=== PATIENT | male | born 1980 ===

== ENCOUNTER 2017-03-04 10:50 | Emergency (ER) | payer BC, OTHER ==
[2017-03-04 10:57] VITALS: BMI 21.4
[2017-03-04 10:58] VITALS: BP 131/75; PULSE 85; RESP 17; TEMP 100.3; O2SAT 98
--- NOTE | 2017-03-04 11:30 | ED PDOC ---
HPI: CCC, URI, Sore Throat Time Seen by Provider: 03/04/17 10:50 Chief Complaint (Nursing): Flu-like Symptoms Chief Complaint (Provider): cough History Per: Patient History/Exam Limitations: no limitations Onset/Duration Of Symptoms: Days (x3 weeks) Current Symptoms Are (Timing): Still Present Additional Complaint(s): Devin Mao is a 37 year old male who presents to the emergency department with a complaint of cough associated with fever ongoing for 3 weeks. Denied knowledge of seasonal allergies. Patient was given Augmentin and Phenergan by PCP but medication did not improvement symptoms. PMD: Nargis Nguyen MD Past Medical History Reviewed: Historical Data, Nursing Documentation, Vital Signs Vital Signs: Last Vital Signs Temp 100.3 F H 03/04/17 10:57 Pulse 85 03/04/17 10:57 Resp 17 03/04/17 10:57 BP 131/75 03/04/17 10:57 Pulse Ox 98 03/04/17 12:38 - Medical History PMH: No Chronic Diseases Denies: Asthma - Surgical History Surgical History: No Surg Hx - Family History Family History: States: Unknown Family Hx - Social History Current smoker - smoking cessation education provided: No Ex-Smoker (has not smoked in the last 12 months): No Alcohol: None Drugs: Denies - Home Medications Home Medications: Ambulatory Orders Medication Instructions Recorded Acetaminophen [Acetaminophen Extra 2 tab PO Q6 PRN #24 tablet 03/04/17 Strength] Albuterol HFA [Ventolin HFA 90 2 puff IH [id number] PRN #1 inhaler 03/04/17 mcg/actuation (8 g)] Azithromycin [Zithromax] 250 mg PO DAILY #6 tab 03/04/17 Prednisone [Deltasone] 2 tab PO DAILY #10 tablet 03/04/17 - Allergies Allergies/Adverse Reactions: Allergies Allergy/AdvReac Type Severity Reaction Status Date / Time No Known Allergies Allergy Verified 03/04/17 11:21 Review of Systems ROS Statement: Except As Marked, All Systems Reviewed And Found Negative Constitutional: Positive for: Fever Respiratory: Positive for: Cough Physical Exam - Reviewed Nursing Documentation Reviewed: Yes Vital Signs Reviewed: Yes - Physical Exam Appears: Positive for: Well, Non-toxic, No Acute Distress Head Exam: Positive for: ATRAUMATIC, NORMAL INSPECTION, NORMOCEPHALIC ENT: Positive for: TM Is/Are (cleared bilaterally), Pharyngeal Erythema. Negative for: Normal ENT Inspection, Sinus Pain/Drainage, Nasal Congestion Neck: Positive for: Normal Cardiovascular/Chest: Positive for: Regular Rate, Rhythm. Negative for: Chest Non Tender Respiratory: Positive for: Rhonchi. Negative for: Normal Breath Sounds, Crackles, Rales, Wheezing, Respiratory Distress Gastrointestinal/Abdominal: Positive for: Normal Exam, Bowel Sounds, Soft. Negative for: Tenderness Neurologic/Psych: Positive for: Alert, Oriented - ECG O2 Sat by Pulse Oximetry: 98 (RA) Pulse Ox Interpretation: Normal - Progress ED Course And Treament: cxr: no obvious infiltrate noted. Medical Decision Making Medical Decision Making: Initial Impression: Persistent cough Initial Plan: * CXR Scribe Attestation: Documented by Maryse Castellano, acting as a scribe for Florinda Petty PA-C. Provider Scribe Attestation: All medical record entries made by the Scribe were at my direction and personally dictated by me. I have reviewed the chart and agree that the record accurately reflects my personal performance of the history, physical exam, medical decision making, and the department course for this patient. I have also personally directed, reviewed, and agree with the discharge instructions and disposition. Disposition - Clinical Impression Clinical Impression: Bronchitis - Patient ED Disposition Is Patient to be Admitted: No - Disposition Disposition: Routine/Home Disposition Time: 12:35 Condition: FAIR Prescriptions: Albuterol HFA [Ventolin HFA 90 mcg/actuation (8 g)] 2 puff IH [id number] PRN #1 inhaler PRN Reason: Cough Acetaminophen [Acetaminophen Extra Strength] 2 tab PO Q6 PRN #24 tablet PRN Reason: Fever >100.4 F Azithromycin [Zithromax] 250 mg PO DAILY #6 tab Prednisone [Deltasone] 2 tab PO DAILY #10 tablet Instructions: Acute Bronchitis (ED) Forms: [facility] (Irish), [facility] School/Work Excuse Print Language: [place]
--- NOTE | 2017-03-04 16:49 | RAD ---
HISTORY: COUGH COMPARISON: No prior. TECHNIQUE: Chest PA and lateral FINDINGS: LUNGS: No active pulmonary disease. PLEURA: No significant pleural effusion identified. No pneumothorax apparent. CARDIOVASCULAR: Normal. OSSEOUS STRUCTURES: No significant abnormalities. VISUALIZED UPPER ABDOMEN: Normal. OTHER FINDINGS: None. IMPRESSION: No acute cardiopulmonary disease appreciated.
== END 2017-03-04 13:10 | disposition home or self-care (01) ==
LOC: H.ER 10:50
DX: J40 Bronchitis, not specified as acute or chronic (principal)